=== PATIENT | male | born 1960 | race Caucasian/White ===

== ENCOUNTER 2017-01-05 19:29 | Emergency (ER) | payer OTHER ==
[2017-01-05 20:02] VITALS: TEMP 98.4
--- NOTE | 2017-01-05 20:28 | CPEKG ---
Heart Rate: 70 RR Interval: 857 P-R Interval: 216 QRSD Interval: 86 QT Interval: 376 QTC Interval: 406 P [place]: 37 QRS [place]: -7 T Wave [place]: 133 EKG Severity - ABNORMAL ECG - EKG Impression: SINUS RHYTHM EKG Impression: FIRST DEGREE AV BLOCK EKG Impression: NONSPECIFIC T ABNORMALITIES, LATERAL LEADS Electronically Signed By: Surya Coughlin 05-Jan-2017 23:47:58
--- NOTE | 2017-01-05 20:35 | EDPHY ---
H & P Time Seen by Provider: 01/05/17 20:34 HPI/ROS: Chief complaint. left leg swelling, shortness of breath, syncope HPI. 56-year-old male short of breath today also ankle swelling today after multiple insect bites. No injury. He was camping over the weekend and was bitten by a lot of mosquitos especially on the left lower leg. Denies chest pain. Some shortness of breath with exertion in using his inhaler today. No fever. He apparently had a syncopal episode at the gym this evening. No abdominal pain. No urinary symptoms. ROS Constitutional. no fever/chills, no weakness Eyes. no problems with vision ENT. no sore throat, no nasal drainage Cardiovascular. no chest pain Respiratory. Shortness of breath Abdominal. no abdominal pain, no nausea/vomiting, no diarrhea . no problems urinating MS. Left leg swelling Skin. Multiple insect bites on left leg Lymph. no swollen glands Neuro. Syncope Past Medical/Surgical History: HIV, nephrectomy, enlarged aorta, hypertension, diabetes, asthma, rectal cancer Social History: Single, nonsmoker, no alcohol Smoking Status: Never smoked Physical Exam: General Appearance: Alert well-developed male mild distress vital signs are stable though initial blood pressure 201/120 Eyes: Pupils equal and round no pallor or injection. ENT, Mouth: Mucous membranes are moist. Respiratory: There are no retractions, lungs are clear to auscultation. Cardiovascular: Regular rate and rhythm. Gastrointestinal: Abdomen is soft and nontender, no masses, bowel sounds normal. Neurological: Awake and alert, sensory and motor exams grossly normal. Skin: Warm and dry, no rashes. Musculoskeletal: Neck is supple nontender. Extremities left leg is swollen from knee down with multiple insect bites. No evidence for infection Psychiatric: Patient is oriented X 3, there is no agitation. Constitutional: Initial Vital Signs Temperature (C) 36.9 C 01/05/17 19:53 Heart Rate 78 01/05/17 19:53 Respiratory Rate 20 01/05/17 19:53 Blood Pressure 201/120 H 01/05/17 19:53 O2 Sat (%) 97 01/05/17 19:53 O2 Delivery Mode Room Air Allergies/Adverse Reactions: clindamycin Allergy (Verified 10/18/15 15:26) Rash metformin Allergy (Verified 01/05/17 19:53) Home Medications: Medication Instructions Recorded Aspirin 81 mg PO DAILY 05/06/16 Atenolol 25 mg PO DAILY 10/18/15 Fluconazole 50 mcg EACHNARE DAILY 10/18/15 Jublia 10 tube DAILY 10/18/15 Luadrien 1 tube DAILY 10/18/15 Mvi, Adult No.2 Without Vit K 1 tab PO DAILY 10/18/15 Tivicay 50 mg PO DAILY 10/18/15 Truvada 200MG/300MG (RX) 200 mg PO DAILY 10/18/15 Vitamin D3 5,000 units PO DAILY 10/18/15 Medical Decision Making - Diagnostics EKG Interpretation: EKG interpreted by me shows normal sinus rhythm with first-degree AV block. Left axis deviation. QRS is normal there is no significant ST elevation or depression. No arrhythmia. The rate is 70 Imaging Results: Imaging Impressions Extremity Venous Study 01/05/17 20:04 Impression: No evidence of deep vein thrombosis in the left lower extremity. Results called and discussed with JENNIFER HARDING M.D. on 01/05/2017 at 21:10 Chest X-Ray 01/05/17 20:56 Impression: Chest negative for acute cardiopulmonary abnormality. Ultrasound reveals no evidence of DVT reviewed by me and discussed with Dr. Kenny Chest x-ray shows possible mild CHF but no pneumonia Procedures: IV normal saline, monitor ED Course/Re-evaluation: Re-evaluation 10:15 p.m.. The patient and I discussed EKG findings, imaging study results, lab results. We discussed treatment plan. I recommended and offered admission however he declines and would like to be treated as an outpatient. We discussed importance of follow-up as well as criteria for return. He expresses understanding and agreement Differential Diagnosis: I considered DVT, PE, acute coronary syndrome. I think the leg swelling is secondary to extensive insect bites on his left leg - Data Points Laboratory Results: Laboratory Results 01/05/17 21:00 01/05/17 21:00 01/05/17 01/05/17 01/05/17 21:00 21:00 21:00 WBC RBC Hgb Hct MCV MCH MCHC RDW Plt Count MPV Neut % (Auto) Lymph % (Auto) [place] % (Auto) Eos % (Auto) Baso % (Auto) Nucleat RBC Rel Count Absolute Neuts (auto) Absolute Lymphs (auto) Absolute Monos (auto) Absolute Eos (auto) Absolute Basos (auto) Absolute Nucleated RBC Immature Gran % Immature Gran # D-Dimer 0.30 ug/mLFEU ug/mLFEU (0.00-0.50) Sodium 139 mEq/L mEq/L (134-144) Potassium 4.4 mEq/L mEq/L (3.5-5.2) Chloride 108 mEq/L mEq/L (97-110) Carbon Dioxide 20 mEq/l L mEq/l (22-31) Anion Gap 11 mEq/L mEq/L (8-16) BUN 14 mg/dL mg/dL (7-23) Creatinine 1.0 mg/dL mg/dL (0.7-1.3) Estimated GFR > 60 Glucose 154 mg/dL H mg/dL (70-100) Calcium 9.4 mg/dL mg/dL (8.5-10.4) Troponin I < 0.012 ng/mL ng/mL (0-0.034) NT-Pro-B Natriuret Pep Pending 01/05/17 21:00 WBC 6.43 10^3/uL 10^3/uL (3.80-9.50) RBC 4.93 10^6/uL 10^6/uL (4.40-6.38) Hgb 14.1 g/dL g/dL (13.7-17.5) Hct 41.6 % % (40.0-51.0) MCV 84.4 fL fL (81.5-99.8) MCH 28.6 pg pg (27.9-34.1) MCHC 33.9 g/dL g/dL (32.4-36.7) RDW 13.5 % % (11.5-15.2) Plt Count 132 10^3/uL L 10^3/uL (150-400) MPV 11.3 fL fL (8.7-11.7) Neut % (Auto) 49.8 % % (39.3-74.2) Lymph % (Auto) 37.5 % % (15.0-45.0) [place] % (Auto) 7.8 % % (4.5-13.0) Eos % (Auto) 3.9 % % (0.6-7.6) Baso % (Auto) 0.8 % % (0.3-1.7) Nucleat RBC Rel Count 0.0 % % (0.0-0.2) Absolute Neuts (auto) 3.21 10^3/uL 10^3/uL (1.70-6.50) Absolute Lymphs (auto) 2.41 10^3/uL 10^3/uL (1.00-3.00) Absolute Monos (auto) 0.50 10^3/uL 10^3/uL (0.30-0.80) Absolute Eos (auto) 0.25 10^3/uL 10^3/uL (0.03-0.40) Absolute Basos (auto) 0.05 10^3/uL 10^3/uL (0.02-0.10) Absolute Nucleated RBC 0.00 10^3/uL 10^3/uL (0-0.01) Immature Gran % 0.2 % % (0.0-1.1) Immature Gran # 0.01 10^3/uL 10^3/uL (0.00-0.10) D-Dimer Sodium Potassium Chloride Carbon Dioxide Anion Gap BUN Creatinine Estimated GFR Glucose Calcium Troponin I NT-Pro-B Natriuret Pep Departure - Departure Disposition: Home, Routine, Self-Care Clinical Impression: Syncope Qualifiers: Syncope type: unspecified Qualified Code(s): R55 - Syncope and collapse Condition: Good Instructions: Syncope (ED) Additional Instructions: Easy activity. Regular meals, drink plenty of fluids, and stay hydrated. May use Benadryl by mouth or Benadryl cream for swelling of your leg. Keep leg elevated as much as possible. Return for further passing out episodes, chest discomfort, trouble breathing. Re-evaluation by regular physician in the next 2 -3 days. Referrals: Ana Cook NP [Primary Care Provider] - 2-3 days without fail
[2017-01-05 21:17] LABS: % IMMATURE GRANULYOCYTES 0.2 % (0.0-1.1); ABSOLUTE IMMATURE GRANULOCYTES 0.01 10^3/uL (0.00-0.10); ADD DIFF? NO; ADD MORPH? NO; ADD SCAN? NO; ATYPICAL LYMPHOCYTE FLAG 10 (0-99); FRAGMENT RBC FLAG 0 (0-99); HEMATOCRIT 41.6 % (40.0-51.0); HEMOGLOBIN 14.1 g/dL (13.7-17.5); LEFT SHIFT FLG 0 (0-99); LIPEMIA HEMOLYSIS FLAG 90 (0-99); MEAN CELL HEMOGLOBIN 28.6 pg (27.9-34.1); MEAN CELL HEMOGLOBIN CONCENTR. 33.9 g/dL (32.4-36.7); MEAN CELL VOLUME 84.4 fL (81.5-99.8); MEAN PLATELET VOLUME 11.3 fL (8.7-11.7); PLATELET CLUMPS FLAG 0 (0-99); PLATELET COUNT 132 10^3/uL (150-400); RED BLOOD CELL COUNT 4.93 10^6/uL (4.40-6.38); RED CELL DISTRIBUTION WIDTH 13.5 % (11.5-15.2)
[2017-01-05 21:28] LABS: ANION GAP 11 mEq/L (8-16); CALCIUM 9.4 mg/dL (8.5-10.4); CARBON DIOXIDE 20 mEq/l (22-31); CHLORIDE 108 mEq/L (97-110); GLOMERULAR FILTRATION RATE > 60; GLUCOSE 154 mg/dL (70-100); POTASSIUM 4.4 mEq/L (3.5-5.2); SODIUM 139 mEq/L (134-144)
[2017-01-05 21:39] LABS: TROPONIN I < 0.012 ng/mL (0-0.034)
[2017-01-05 22:13] VITALS: BP 171/98; PULSE 70; RESP 16; O2SAT 95
== END 2017-01-05 22:30 | disposition home or self-care (01) ==
DX: R55 Syncope and collapse (principal); I10 Essential (primary) hypertension; E11.9 Type 2 diabetes mellitus without complications; B20 Human immunodeficiency virus [HIV] disease; J45.909 Unspecified asthma, uncomplicated; Z79.82 Long term (current) use of aspirin; Z85.048 Personal history of other malignant neoplasm of rectum, rectosigmoid junction, and anus

== ENCOUNTER 2017-01-06 12:14 | Inpatient (IN) | payer OTHER ==
--- NOTE | 2017-01-06 13:26 | EDPHY ---
H & P Stated Complaint: continued problems with htn and l shoulder pain/seen for same last night Time Seen by Provider: 01/06/17 12:47 - Personal History Current Tetanus/Diphtheria Vaccine: Yes - Medical/Surgical History Hx Asthma: Yes Hx Chronic Respiratory Disease: No Hx Diabetes: Yes Hx Cardiac Disease: No Hx Renal Disease: Yes Hx Cirrhosis: No Hx Alcoholism: No Hx HIV/AIDS: Yes Hx Splenectomy or Spleen Trauma: No Other PMH: HIV 2003, Nephrectomy 1998, Enlarged Aorta, Hypertension, DM type 2, Asthma, Rectal Cancer - Social History Smoking Status: Never smoked Constitutional: Initial Vital Signs Temperature (C) 36.5 C 01/06/17 12:20 Heart Rate 83 01/06/17 12:20 Respiratory Rate 18 01/06/17 12:20 Blood Pressure 187/107 H 01/06/17 12:20 O2 Sat (%) 96 01/06/17 12:20 O2 Delivery Mode Room Air Allergies/Adverse Reactions: clindamycin Allergy (Verified 01/06/17 12:17) Rash metformin Allergy (Verified 01/06/17 12:17) Home Medications: Medication Instructions Recorded Albuterol [Proventil Inhaler HFA 1 - 2 puffs IH Q4H PRN 01/06/17 (*)] Aspirin [Aspirin 81mg (*)] 81 mg PO DAILY 01/06/17 Carvedilol [Coreg] 12.5 mg PO BIDMEAL 01/06/17 Cholecalciferol Vit D3 [Vitamin D3 5,000 units PO DAILY 01/06/17 (*)] Dolutegravir Sodium [Tivicay] 50 mg PO DAILY 01/06/17 Emtricitabine/Tenofov Alafenam 1 each PO DAILY 01/06/17 [Descovy 200-25 mg Tablet] Fluticasone Nasal [Flonase Nasal 1 sprays NASAL DAILY PRN 01/06/17 [place] (RX)] Losartan Potassium [Cozaar] 100 mg PO HS 01/06/17 Medical Decision Making - Diagnostics Imaging Results: Imaging Impressions Chest X-Ray 01/06/17 13:28 Impression: 1.COPD/ mild airways disease. No pneumonia. 2. No CHF. PICC Line Insertion 01/06/17 15:43 Impression: Successful right upper extremity PICC placement. The catheter may be used immediately. ED Course/Re-evaluation: CHIEF COMPLAINT: High blood pressure. HISTORY OF PRESENT ILLNESS: This patient is a 56 year old male complaining of hypertension and other associated symptoms onset yesterday. Yesterday, he was not feeling well and had a swollen left ankle and burning pain in his quadriceps while going up and down stairs. He attributes his ankle swelling and erythematous areas to multiple excoriated bug bite sites and psoriasis. He noted his blood pressure was quite elevated at 212/114. He had a syncopal episode while using the stationary bike at the gym. He was seen in this emergency department yesterday evening and was recommended admission at that time, but he declined and went home. Today, he went to visit his eye surgeon, and his blood pressure was elevated again at 212/115. He has noted increased difficulty with walking or going up stairs, and notes left shoulder pain during exertional efforts. He does not usually use his inhaler, but used it five times today. He has not missed any of his regular medications, and denies any recent changes in medication regimen. He denies history of prior cardiac catheterization. He denies shortness of breath at night or while lying flat. No fever, vomiting, diarrhea, or other associated symptoms. REVIEW OF SYSTEMS: A 10 point review of systems was performed and is negative with the exception of the elements mentioned in the history of present illness. PHYSICAL EXAM: General Appearance: Alert, well hydrated, appropriate, and non-toxic appearing. Head: Atraumatic without scalp tenderness or obvious injury Eyes: Pupils equal, round, reactive to light and accommodation, EOMI, no trauma , no injection. Ears: Clear bilaterally, no perforation, normal landmarks Nose: Atraumatic, no rhinorrhea, clear. Throat: There is no erythema or exudates, no lesions, normal tonsils, mucus membranes moist. Neck: Supple, 2+ carotid upstroke, non-tender, no lymphadenopathy. Respiratory: No retractions, no distress, no wheezes, and no accessory muscle use. Lungs are clear to auscultation bilaterally. Cardiovascular: Regular rate and rhythm, no murmurs, rubs, or gallops. Bilateral carotid, radial, dorsalis pedis, and posterior tibial pulses intact. Good capillary refill all extremities. Gastrointestinal: Abdomen is soft, non-tender, non-distended, no masses, no rebound, no guarding, no peritoneal signs. Musculoskeletal: Normal active ROM of all extremities, atraumatic. Neurological: Alert, appropriate, and interactive. The patient has normal DTRs and non-focal cranial nerves, motor, sensory, and cerebellar exam. Skin: No rashes, good turgor, no nodules on palpation. PAST MEDICAL HISTORY: HIV 2003, Enlarged Aorta, Hypertension, DM type 2, Asthma , Rectal Cancer PAST SURGICAL HISTORY: Nephrectomy 1998 SOCIAL HISTORY: Single, nonsmoker, no alcohol use. Lives in [place]. DIAGNOSTICS/PROCEDURES/CRITICAL CARE TIME: The 12 lead EKG was interpreted by myself. See hard copy and/or "tracemaster" electronic copy for interpretation. Sinus rhythm, rate 68. First degree AV block , abnormal T waves. DIFFERENTIAL DIAGNOSIS: The differential diagnosis for the patient's syncope included but was not limited to vasovagal syncope, arrhythmia, dehydration, cardiogenic causes, neurogenic causes, and blood loss. MEDICAL DECISION MAKIN56 year old male presents with hypertension, exertional difficulty, and left- sided chest pain onset yesterday. He has history of HIV, type II diabetes, and controlled hypertension. Concern for increased likelihood of cardiac disease due to antiretroviral medication. EKG compared to prior studies from 01/05/17 and 12/03/16. Shows lateral ST changes with differences over all three EKGs reviewed. 13:50 Spoke with Clem Hgaan mechanic recovery. 13:58 Echocardiogram at bedside. 15:30 Clem Hagan mechanic recovery at bedside. 15:40 Spoke with hospitalist service. Dr. Metz accepts admission for continued cardiac evaluation. - Data Points Laboratory Results: Laboratory Results 01/06/17 14:42 01/06/17 14:42 01/06/17 01/06/17 14:42 14:42 WBC 6.40 10^3/uL 10^3/uL (3.80-9.50) RBC 4.98 10^6/uL 10^6/uL (4.40-6.38) Hgb 14.5 g/dL g/dL (13.7-17.5) Hct 42.0 % % (40.0-51.0) MCV 84.3 fL fL (81.5-99.8) MCH 29.1 pg pg (27.9-34.1) MCHC 34.5 g/dL g/dL (32.4-36.7) RDW 13.4 % % (11.5-15.2) Plt Count 131 10^3/uL L 10^3/uL (150-400) MPV 11.5 fL fL (8.7-11.7) Neut % (Auto) 55.1 % % (39.3-74.2) Lymph % (Auto) 32.8 % % (15.0-45.0) [place] % (Auto) 7.3 % % (4.5-13.0) Eos % (Auto) 3.6 % % (0.6-7.6) Baso % (Auto) 0.9 % % (0.3-1.7) Nucleat RBC Rel Count 0.0 % % (0.0-0.2) Absolute Neuts (auto) 3.52 10^3/uL 10^3/uL (1.70-6.50) Absolute Lymphs (auto) 2.10 10^3/uL 10^3/uL (1.00-3.00) Absolute Monos (auto) 0.47 10^3/uL 10^3/uL (0.30-0.80) Absolute Eos (auto) 0.23 10^3/uL 10^3/uL (0.03-0.40) Absolute Basos (auto) 0.06 10^3/uL 10^3/uL (0.02-0.10) Absolute Nucleated RBC 0.00 10^3/uL 10^3/uL (0-0.01) Immature Gran % 0.3 % % (0.0-1.1) Immature Gran # 0.02 10^3/uL 10^3/uL (0.00-0.10) Sodium 140 mEq/L mEq/L (134-144) Potassium 4.2 mEq/L mEq/L (3.5-5.2) Chloride 109 mEq/L mEq/L (97-110) Carbon Dioxide 19 mEq/l L mEq/l (22-31) Anion Gap 12 mEq/L mEq/L (8-16) BUN 15 mg/dL mg/dL (7-23) Creatinine 0.9 mg/dL mg/dL (0.7-1.3) Estimated GFR > 60 Glucose 196 mg/dL H mg/dL (70-100) Calcium 9.0 mg/dL mg/dL (8.5-10.4) Magnesium 1.7 mg/dL mg/dL (1.6-2.3) Troponin I < 0.012 ng/mL ng/mL (0-0.034) NT-Pro-B Natriuret Pep 145 pg/mL H pg/mL (0-125) Medications Given: Discontinued Medications Carvedilol (Coreg) 12.5 mg PO ONCE ONE Stop: 01/06/17 15:52 Last Admin: 01/06/17 17:02 Dose: 12.5 mg Furosemide (Lasix Injection) 40 mg IVP EDNOW ONE Stop: 01/06/17 15:51 Last Admin: 01/06/17 17:03 Dose: 40 mg Departure - Departure Disposition: [facility] Inpatient Acute Condition: Fair Report Scribed for: Stanley Santos Report Scribed by: Delores Ceja Date of Report: 01/06/17 Time of Report: 15:58
--- NOTE | 2017-01-06 13:34 | CPEKG ---
Heart Rate: 68 RR Interval: 882 P-R Interval: 212 QRSD Interval: 88 QT Interval: 380 QTC Interval: 405 P [place]: 36 QRS [place]: -11 T Wave [place]: 138 EKG Severity - ABNORMAL ECG - EKG Impression: SINUS RHYTHM EKG Impression: FIRST DEGREE AV BLOCK EKG Impression: ABNORMAL T, CONSIDER ISCHEMIA, LATERAL LEADS Electronically Signed By: Stanley Santos 06-Jan-2017 21:19:50
[2017-01-06 14:52] LABS: % IMMATURE GRANULYOCYTES 0.3 % (0.0-1.1); ABSOLUTE IMMATURE GRANULOCYTES 0.02 10^3/uL (0.00-0.10); ADD DIFF? NO; ADD MORPH? NO; ADD SCAN? NO; ATYPICAL LYMPHOCYTE FLAG 10 (0-99); FRAGMENT RBC FLAG 0 (0-99); HEMOGLOBIN 14.5 g/dL (13.7-17.5); LEFT SHIFT FLG 0 (0-99); LIPEMIA HEMOLYSIS FLAG 90 (0-99); MEAN CELL HEMOGLOBIN 29.1 pg (27.9-34.1); MEAN CELL HEMOGLOBIN CONCENTR. 34.5 g/dL (32.4-36.7); MEAN CELL VOLUME 84.3 fL (81.5-99.8); MEAN PLATELET VOLUME 11.5 fL (8.7-11.7); PLATELET CLUMPS FLAG 20 (0-99); PLATELET COUNT 131 10^3/uL (150-400); RED BLOOD CELL COUNT 4.98 10^6/uL (4.40-6.38); RED CELL DISTRIBUTION WIDTH 13.4 % (11.5-15.2)
[2017-01-06 15:01] LABS: ANION GAP 12 mEq/L (8-16); CARBON DIOXIDE 19 mEq/l (22-31); CHLORIDE 109 mEq/L (97-110); CREATININE 0.9 mg/dL (0.7-1.3); GLOMERULAR FILTRATION RATE > 60; GLUCOSE 196 mg/dL (70-100); MAGNESIUM 1.7 mg/dL (1.6-2.3); POTASSIUM 4.2 mEq/L (3.5-5.2); SODIUM 140 mEq/L (134-144)
[2017-01-06 15:13] LABS: TROPONIN I < 0.012 ng/mL (0-0.034)
[2017-01-06] MEDS ORDERED: ALTEPLASE 2 MG VIAL IVP PRN (15:43)
[2017-01-06] MEDS ORDERED: FUROSEMIDE 40 MG/4 ML VIAL IVP ONE (15:50)
[2017-01-06] MEDS ORDERED: CARVEDILOL 25 MG TAB PO ONE (15:51)
[2017-01-06] MEDS ORDERED: ONDANSETRON DISINTEGRATING 4 MG TAB PO PRN (16:34)
[2017-01-06] MEDS ORDERED: ACETAMINOPHEN 325 MG TAB PO PRN (16:34)
[2017-01-06] MEDS ORDERED: ONDANSETRON 4 MG/2 ML VIAL IVP PRN (16:34)
[2017-01-06] MEDS: CARVEDILOL 25 MG TAB PO SCH (18:13)
[2017-01-06] MEDS ORDERED: FLUTICASONE NASAL 120 SPRAYS/16 GM MDI EACHNARE PRN (18:53)
[2017-01-06] MEDS ORDERED: ALBUTEROL 60 PUFFS/8 GM MDI IH PRN (18:53)
[2017-01-06 19:00] LABS: COLOR COLORLESS; LEUKOCYTE ESTERASE,URINE NEGATIVE (NEGATIVE); NITRITE,URINE NEGATIVE (NEGATIVE)
--- NOTE | 2017-01-06 19:47 | GHP ---
[f rep st] HISTORY AND PHYSICAL DATE OF ADMISSION: 01/06/2017 CHIEF COMPLAINT: Hypertension and shoulder pain. Primary physician at [facility]. HISTORY OF PRESENT ILLNESS: A pleasant 56-year-old male with a history of hypertension, HIV, and dilated aortic aneurysm, presenting with uncontrolled hypertension. Yesterday, he was not feeling well and had a swollen left ankle, so he came to the emergency room. At that time, his blood pressure was elevated to 212/114. Prior to coming to the ER yesterday, he had a syncopal episode while using a stationary bike. Prior to this, he felt his heart racing. He was clammy and diaphoretic, and then awoke on the ground. He said he had similar symptoms during a nuclear stress test a year ago. Today, he went to see his eye surgeon, and his blood pressure was elevated again to 212/115. He says his left shoulder has been painful during exertional efforts. He does not normally use his inhaler and was using it several times yesterday as well as over the weekend when hiking on a camping trip. He has multiple bug bites on that leg, which are mildly irritating. Next, he denies PND or orthopnea. No recent travel. No headaches. No overt chest pain. He states he walks 10,000 steps a day at work and does not usually get chest pain or shortness of breath. REVIEW OF SYSTEMS: I completed a 10-point review of systems, which was negative except as noted in the HPI. PAST MEDICAL HISTORY: Hypertension, LVH, dilated aortic aneurysm--4 cm on 2015, CKD, hyperlipidemia, HIV--nondetectable levels, myopathy, C difficile, abdominal hernia, myopathy of unknown etiology. PAST SURGICAL HISTORY: Nephrectomy secondary to cyst, with subsequent abdominal hernia surgeries x4. FAMILY HISTORY: He is adopted, but was able to talk to his adoptive family. Renal cell carcinoma, uncle with colon cancer, coronary artery disease in all grandparents, breast cancer in all grandparents, uncle with stroke, and hypertension throughout the family. SOCIAL HISTORY: He is adopted. He lives in [place]. He works at a furniture store. He lives with roommates. Drinks occasional alcohol. No illicits or tobacco next. ALLERGIES: Clindamycin, metformin, statins. PHYSICAL EXAMINATION: VITAL SIGNS: Blood pressure 187/107, heart rate 80s, respirations 16, 96% on room air, temperature 36.5. GENERAL: Overweight male, sitting up in bed, in no acute distress. HEENT: PERRLA. EOMI. Oropharynx clear. CV: Regular rhythm. No murmurs, gallops, or rubs. +1 edema over shins. LUNGS: Clear. No crackles or wheezes. ABDOMEN: Soft, nontender, nondistended. Positive bowel sounds. : No suprapubic tenderness. MUSCULOSKELETAL: 5/5 upper and lower extremity strength. NEUROLOGIC: 2 through 12 intact. PSYCHIATRIC: Alert and oriented x3. LABORATORY DATA: Sodium 140, potassium 4.2, chloride 109, carbon dioxide 19, BUN 15, creatinine 0.9, glucose 196, mag 1.7. Troponin less than 0.012. BNP 145. WBC 6.4, hemoglobin 14, hematocrit 42, platelets 131. UA is pending. Chest x-ray was personally reviewed by me: COPD. No evidence of edema or pneumonia. EKG was personally reviewed by me: Normal sinus rhythm. ST depression in I, aVL, V4, and V5. This is similar to prior. ASSESSMENT AND PLAN: 1. Accelerated hypertension: Echocardiogram performed today showed left ventricular hypertrophy and a normal ejection fraction. Suspect diastolic dysfunction. He was evaluated by Clem Hagan with Cardiology. Increase Coreg to 25 mg b.i.d., along with Lasix. Continue his sartan. May need to add amlodipine in the morning. 2. Syncopal episode: No evidence of arrhythmia here. Troponins and EKG negative. He had a D-dimer yesterday that was negative, and an ultrasound of lower extremities that was negative. May have been dehydrated. He will undergo a Lexiscan test tomorrow. 3. Shoulder pain: Could be musculoskeletal versus ACS equivalent. He had a negative stress test a year ago, but given the family history as well as HIV as risk factors, we will stress again tomorrow. 4. Mildly decompensated diastolic heart failure. Mild edema on exam. Lasix, BB , Losartan. 5. Human immunodeficiency virus, well controlled. Continue home medications. 6. Diet: Cardiac. N.p.o. after midnight. 7. Deep vein thrombosis prophylaxis. Low risk, ambulatory. DISPOSITION: The patient warrants observation given accelerated hypertension and mildly decompensated diastolic heart failure, warranting serial troponins and telemetry. /[id number]/MODL MTDD
[2017-01-06] MEDS: LOSARTAN POTASSIUM 50 MG TAB PO SCH (20:09)
[2017-01-06] MEDS ORDERED: ALBUTEROL 200 PUFFS/18 GM MDI IH PRN (21:12)
--- NOTE | 2017-01-07 04:55 | GCON ---
[f rep st] CONSULTATION CARDIOLOGY CONSULTATION DATE OF CONSULTATION: 01/06/2017 INDICATION FOR CONSULTATION: Hypertension, increased shortness of breath, left shoulder and back pain. HISTORY OF PRESENT ILLNESS: The patient is a 56-year-old male, who is known to our practice. He has significant past history that includes HIV positive, hypertension, LVH, mildly dilated ascending aorta (4 cm by echocardiogram 01/2016 ), occasional premature ventricular contraction, renal insufficiency (previous nephrectomy), hyperlipidemia, in which he is currently not on statin therapy due to ongoing elevated CK despite being off statin therapy. The patient reports up to 1 week ago he had been in his normal state of health, then reporting ongoing dyspnea on exertion, finding it hard to climb 1 flight of stairs. He reports developing occasional left shoulder pain, that comes on spontaneously or occasionally with exertion, lasting up to 15-20 minutes, but has been known to last up to 2-3 hours. He has also noted significant swelling in his legs, reporting left worse than right. He does report last evening, after working out, he did noticing significant elevated blood pressure, reporting systolic up into the 220s. He denies having any palpitations or lightheadedness. With his ongoing symptoms, he did come to the emergency department on January 05 at 8 p.m., in which initial blood pressure was noted to be 201/120. Chest x-ray was obtained at that time, showing no acute cardiopulmonary process. Electrocardiogram showed sinus rhythm with first- degree AV block, with biphasic T-waves in lateral leads. Laboratory studies drawn last evening did not show a significant elevated troponin, BNP was mildly elevated at 151, D-dimer was less than 0.30. He did undergo ultrasound of his left lower extremity, due to unequal swelling, which did not show any deep vein thrombosis. Due to his symptoms, he was offered to stay, but the patient preferred going home. The patient reported no problem throughout the evening, but this morning awoke, had an eye appointment, and his blood pressure was taken again, this time, finding that his blood pressure was elevated up to 212 mmHg. He did call his primary care, in which he was recommended to go directly to the emergency department again. Upon arrival, his blood pressure today was noted to be 187/100. Repeated electrocardiogram done continued to show inverted T-waves in lateral leads, with a 1st degree AV block, but no significant change from the day before. Repeated troponin level today showed to be less than 0.012. He reports no other significant blood pressure changes. He continues to report shortness of breath, but currently is not having shoulder pain. He reports no recent fevers, chills, night sweats. He did go camping, and he has multiple mosquito bites on his lower extremities, but no signs of active infection. He does report he has been compliant with all his medications, cardiac and HIV. He reports he has had no other significant symptoms. Denies having any bleeding issues. Denies any symptoms to suggest TIA or CVA. Reports mild orthopnea, but denies having any PND, near-syncope, or syncopal events. Repeated chest x-ray done today showed mild COPD, no pneumonia, no CHF. PAST MEDICAL HISTORY: Significant past medical history includes: 1. Dilated ascending aorta measuring at 4 cm by echo 01/2016. 2. Hyperlipidemia. 3. HIV. 4. Hypertension. 5. LVH. 6. Myopathy. 7. Type 2 diabetes without complications. 8. Renal insufficiency with history of nephrectomy of right kidney, due to being concerned about possible renal cell carcinoma. PAST SURGICAL HISTORY: Includes: 1. Previous lens replacement in both eyes. 2. Mohs procedure. 3. Nephrectomy of the right kidney. 4. Tonsillectomy. 5. Umbilical repair. FAMILY HISTORY: The patient is adopted, but knows family. mother did have history of angina and congestive heart failure. SOCIAL HISTORY: He has 3 children. He drinks alcohol lightly, and has never smoked. He is a . He works in sales. Denies any illicit drug use. ALLERGIES: The patient with known allergies to clindamycin, metformin, statins. MEDICATIONS: Per his [place] chart 1. Aspirin 81 mg p. o. daily 2. Coreg 12.5 mg half a tablet twice daily 3. Imitrex 50 mg 1 tablet p.o. with fluids as early as possible with the onset of migraine attacks. May repeat after 2 hours of headache returns. Not to exceed 200 mg 24 hours. 4. Losartan 100 mg p.o. daily 5. Odefsey 200 mg/25 mg/25 mg 1 tablet p.o. daily 6. Viagra 50 mg tablet 1 tablet by oral route once daily as needed, approximately 30 minutes to 4 hours before sexual activity 7. Vitamin D3 5000 units 1 tablet daily REVIEW OF SYSTEMS: A 10-point review of systems on this patient all negative except as mentioned above. PHYSICAL EXAMINATION: GENERAL APPEARANCE: Tall, mildly obese, male. He is alert and oriented to person, place, time, and situation. Appears to be under no acute distress. CURRENT VITAL SIGNS: Blood pressure of 175/84, heart rate 76, sinus rhythm on the monitor. Saturation 96% on room air. Temperature of 36.3 degrees Celsius. HEENT: Head is normocephalic. Lips and tongue are pink and moist with no signs of cyanosis. Conjunctivae pink. NECK: Trachea is midline, +2 carotid pulses bilateral. No auscultated bruits. No jugular vein distention. RESPIRATORY: Lungs are clear to auscultation. No rhonchi, rales or wheezes. No accessory muscle use. No intercostal muscle retraction noted. CARDIAC: Regular rate, regular rhythm. S1, S2. No S3, gallops, rubs, or murmurs noted. ABDOMEN: Soft, nontender. Bowel sounds x4 quadrants. No organomegaly. No palpable masses. SKIN: [place], warm, dry. No cyanosis. No clubbing. +2 to 3 peripheral edema left lower extremity, +1 to 2 right lower extremity. VASCULAR: +2 carotids bilateral, +2 radials bilateral, +1 posterior tibial pulses bilateral. LABORATORY STUDIES: Drawn today show WBC of 6.40, hemoglobin 14.5, hematocrit of 42, platelet count 131, sodium 140, potassium 4.2, chloride 109, CO2 19, BUN 15, creatinine 0.9, glucose 196, magnesium 1.7, troponin less than 0.012, proBNP 145. Currently pending UA. IMAGING: Studies: Electrocardiogram as mentioned above. Chest x-ray as mentioned above. Preliminary echocardiogram results showing hyperdynamic LV with EF of 70%. LVH , no wall motion abnormalities. Previous studies: Most recent MPI study was done on January 24, 2016, showing no reversible deficits suggesting of ischemia. No fixed deficits suggesting of infarction. 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 ASSESSMENT AND PLAN: 1. Hypertension: The patient reporting that he has been well controlled on home blood pressure medications until the last week, noted last evening to have systolic blood pressure of 210, today 185/100. He reports he has been compliant with his carvedilol and losartan. He does have diastolic dysfunction and left ventricular hypertrophy on his echocardiogram. No significant elevated BNP. At this time, I would like to increase his carvedilol dose up to 25 mg p.o. twice daily, will give him a 12.5 mg tablet now. I do also think some diuresis will help him, will give him a 1 time order of Lasix 40 mg IV. We will continue him on home dose of losartan, if necessary, consideration of starting him on amlodipine. The patient is known to have past history of nephrectomy on the right, BUN creatinine are within normal limits today.. Would like him to have a UA done to assure no urinary tract infection as potential cause of his symptoms. 2. Shortness of breath: The patient reports ongoing dyspnea on exertion. Preliminary echocardiogram showing left ventricular hypertrophy with no wall motion abnormalities, normal ejection fraction. Diastolic dysfunction potentially could be playing a larger role with this, again will attempt to get better blood pressure control, and diuresis as above. The patient noted to have negative D-dimer yesterday evening, and no signs of thrombus in his lower extremities. 3. Left back/shoulder pain: The patient reporting ongoing left back pain with shortness of breath, noted to have abnormal electrocardiogram. Has been on HIV medications which are notorious to be associated with CAD. The patient also with cardiac risk factors of hypertension, hyperlipidemia, sex, and family history of heart disease. His last nuclear MPI was 1 year ago, which showed no signs of ischemia or infarction. He has had 2 negative troponins. I do feel that it would be valid with his ongoing symptoms back/shoulder and shortness of breath that he be further risk analyzed for ischemia. We will plan for him to have a [place]-MPI study done tomorrow. 4. Peripheral edema: The patient noted to have increased peripheral edema in his lower extremities, again will attempt to place him on diuretic therapy, will monitor his renal function closely due to history of nephrectomy. 5. Renal insufficiency: The patient with past history of nephrectomy, will monitor renal function throughout the admission. 6. Ascending aortic dilation: The patient known to have mildly dilated ascending aorta at 4 cm based off previous echocardiogram, pending preliminary echo report showing no significant dilation. Again, blood pressure management, negative D-dimer on admission. If continuation of shoulder pain and MPI study negative, consider CTA of chest. 7. Human immunodeficiency virus positive: The patient will be followed by Hospitalist Services. I will let Internal Medicine decide on resuming his home HIV medications. 8. Hyperlipidemia: The patient has known history of hyperlipidemia. He has been noted to be statin intolerant in the past, with elevated liver enzymes and CK. I have encouraged healthy diet. May consider as an outpatient to place the patient on a PCSK9 inhibitor. Thank you for this consultation. We will be glad to follow along with you. /[id number]/MODL MTDD
[2017-01-07 06:36] LABS: ANION GAP 11 mEq/L (8-16); CALCIUM 8.8 mg/dL (8.5-10.4); CARBON DIOXIDE 24 mEq/l (22-31); CHLORIDE 108 mEq/L (97-110); GLOMERULAR FILTRATION RATE > 60; GLUCOSE 126 mg/dL (70-100); POTASSIUM 4.3 mEq/L (3.5-5.2); SODIUM 143 mEq/L (134-144)
[2017-01-07 06:48] LABS: TROPONIN I 0.054 ng/mL (0-0.034)
[2017-01-07] MEDS: ASPIRIN 81 MG CHEWABLE TAB PO SCH (08:49)
[2017-01-07] MEDS: CARVEDILOL 25 MG TAB PO SCH ×4 (08:50→17:22)
[2017-01-07] MEDS: CHOLECALCIFEROL VIT D3 1,000 UNITS TAB PO SCH (08:53)
[2017-01-07] MEDS ORDERED: Dolutegravir Sodium [Tivicay] 50 MG PO SCH (09:00)
[2017-01-07] MEDS ORDERED: Emtricitabine/Tenofov Alafenam [Descovy 200-25 Mg Tablet] 1 EACH) PO SCH (09:00)
--- NOTE | 2017-01-07 09:11 | CPEKG ---
Heart Rate: 68 RR Interval: 882 P-R Interval: 216 QRSD Interval: 84 QT Interval: 388 QTC Interval: 413 P [place]: 44 QRS [place]: 3 T Wave [place]: 141 EKG Severity - ABNORMAL ECG - EKG Impression: SINUS RHYTHM EKG Impression: FIRST DEGREE AV BLOCK EKG Impression: ABNORMAL T, CONSIDER ISCHEMIA, LATERAL LEADS Electronically Signed By: Carlos Castro 07-Jan-2017 11:30:11
[2017-01-07] MEDS ORDERED: DIAZEPAM 5 MG TAB PO ONE (09:27)
[2017-01-07] MEDS ORDERED: diphenhydrAMINE 25 MG CAP PO ONE ×2 (09:27→11:21)
[2017-01-07] MEDS ORDERED: TEMAZEPAM 15 MG CAP PO PRN (09:27)
[2017-01-07] MEDS ORDERED: ASPIRIN EC 325 MG TAB PO ONE ×2 (09:27→11:21)
[2017-01-07] MEDS ORDERED: NITROGLYCERIN 0.4 MG BTL SL PRN (09:27)
[2017-01-07] MEDS ORDERED: NS 1,000 ML IV SCH (09:30)
[2017-01-07] MEDS: Dolutegravir Sodium [Tivicay] 50 MG PO SCH (10:16)
[2017-01-07] MEDS: Emtricitabine/Tenofov Alafenam [Descovy 200-25 Mg Tablet] 1 EACH) PO SCH (10:16)
[2017-01-07 10:20] LABS: INR 1.06 (0.83-1.16); PROTIME(PATIENT) 13.7 SEC (12.0-15.0)
[2017-01-07 10:22] LABS: CHOLESTEROL 170 mg/dL (140-220); HIGH DENSITY LIPOPROTEIN 21 mg/dL (40-65); LDL/HDL RATIO 4.76 RATIO (1.00-3.64); LOW DENSITY LIPOPROTEIN 100 mg/dL (80-100); MAGNESIUM 1.8 mg/dL (1.6-2.3); NON-HIGH DENSITY LIPOPROTEIN 149 mg/dL (90-129); TRIGLYCERIDE 248 mg/dL (40-150); VERY LOW DENSITY LIPOPROTEINS 49 mg/dL (8-25)
[2017-01-07] MEDS ORDERED: MAGNESIUM SULF 1 GM/DEXTROSE 100 ML IV ONE (10:48)
[2017-01-07] MEDS ORDERED: fentaNYL 100 MCG/2 ML INJ ONE (10:58)
[2017-01-07] MEDS ORDERED: LIDOCAINE 1% 300 MG/30 ML SDV ONE (10:58)
[2017-01-07] MEDS ORDERED: MIDAZOLAM 2 MG/2 ML VIAL ONE (10:59)
[2017-01-07] MEDS ORDERED: IOPAMIDOL (ISOVUE-370) 150 ML BTL IV ONE (10:59)
--- NOTE | 2017-01-07 11:08 | PDCARPN ---
Cardiology Progress Note Chief Complaint: Patient reports continuation of shortness of breath. But improved from yesterday. Assessment/Plan: Assessment: 56-year-old male with known history of HIV, hypertension, LVH, mildly dilated ascending aorta occasional premature ventricular contraction, renal insignificant, previous nephrectomy hyperlipidemia who has been known to be statin intolerant. Admitted to the hospital 01/06/2017 for complain ongoing shortness of for the last week, occasional left shoulder and neck pain, hypertension with systolic blood pressure up to 212 and ongoing peripheral edema. Negative troponin D-dimer in the emergency department. Ultrasound of lower extremity showing no thrombus. Preliminary echocardiogram done on 2016 showing hyperdynamic LV with EF 70%, LVH, motion abnormalities. Last evening, has had is in carvedilol increased, continue home dose of losartan, and given 1 dose of IV Lasix. Today, patient reports mild improvement in shortness of breath, mild improvement in peripheral edema. Denies of any chest pressure or pain. Patient noted last evening 220 in the morning of having increased premature ventricular contractions, with 2-3 runs of nonsustained ventricular tachycardia, longest 8 beats in a row. Per nursing staff, patient was asymptomatic. Was sleeping at time of event. Laboratory studies done today show potassium at 4.3, magnesium at 1.8, troponin mildly elevated at 0.054. Fasting lipid panel showed triglycerides at 2:48 a.m., total cholesterol 170, LDL 100, HDL 21. Plan: 1. Left back/shoulder pain/shortness of breath/elevated troponin: Concerning new recent studies showing mildly elevated troponin, and nonsustained ventricular tachycardia as possible cause cardiac ischemia. Had been scheduled for MPI study. After discussing with Dr. Waqas crowley due to patient's report of sudden increased shortness of breath over the last week, occasional left shoulder with back pain, multiple cardiac risk factors, and episodes of nonsustained VT noted on telemetry, it would be more appropriate for him to have a coronary angiogram to evaluate for cardiac ischemia in MPI study. Risks and benefits of this procedure were explained to the patient, he verbalizes understanding. We will plan him to be transferred over to the [facility], and undergo cardiac catheterization later this morning. He will continue aspirin therapy, carvedilol. 2. Nonsustained VT: Patient noted to have episodes of nonsustained VT last evening, potassium was 4.3, magnesium 1.8. Chest x-ray done this morning showed PICC line in adequate position, not in RV. Will evaluate for cardiac ischemia as mentioned above, have ordered for him to get 1 g of magnesium IV before catheterization. 3. Hypertension: Better controlled with medication changes, but diastolic blood pressure remains 90s to 100, systolic 140s. Pending catheterization results, consideration of continuing diuretic therapy, if necessary starting on amlodipine. Continue on home dose of losartan and new dosage carvedilol 4. LVH: Patient with noted LVH and diastolic dysfunction, could be contributing to his ongoing shortness of breath, attempting better blood pressure control as mentioned above, continuation of diuretic therapy. 5. Peripheral edema: Improvement today after dose of IV Lasix. Due to undergoing cardiac catheterization today, history of renal insufficiency due to previous nephrectomy, will hold off on diuretic therapy the time. 6. History of renal insufficiency: Previous nephrectomy, creatinine within normal limits, continue to monitor 7. Hyperlipidemia: Patient has been noted to be statin intolerant the past elevated liver enzymes and CPK. Pending results, consideration of having patient be placed on a PCSK9 inhibitor as an outpatient. Further recommendations will status post cardiac catheterization. 01/07/17 11:05 Subjective: Continuation of shortness of breath, denies chest pressure. Reports no further episodes of left shoulder overnight. Reports asymptomatic during episode of nonsustained VT. Denies of palpitations lightheadedness, near-syncope. Reviewed/Discussed With: hospitalist (Dr Avitia), other (Dr Alan) Objective: Vital Signs (8 Hrs) Temp Pulse Resp BP Pulse Ox 01/07/17 07:27 36.3 C 66 18 144/102 H 93 01/07/17 04:00 36.6 C 61 19 149/91 H 98 Intake/Output (24 Hrs) 01/06/17 01/07/17 01/08/17 05:59 05:59 05:59 Intake Total 950 Output Total 2525 Balance -1575 Intake: Oral (ml) 950 Output: Urine (ml) 2525 Urinal 2525 Other: Weight 131.9 kg Intake Quantity Yes Sufficient Number of Voids Toilet 1 Result Diagrams: 01/06/17 14:42 01/07/17 06:10 Cardiac Labs: Cardiac Lab Results (72 Hrs) 01/07/17 01/06/17 06:10 21:19 Troponin I 0.054 H < 0.012 - Physical Exam Constitutional: no apparent distress, obese Ears, Nose, Mouth, Throat: moist mucous membranes Cardiovascular: regular rate and rhythm, no rubs, no gallops, pulses symmetric bilat, No jugular vein distention Peripheral Pulses: 1+: dorsalis-pedis (R), dorsalis-pedis (L), 2+: carotid (R), carotid (L) Respiratory: clear to auscultate bilat, no crackles, no wheezes, No reduced air movement Gastrointestinal: normoactive bowel sounds Skin: warm, No no edema (+1 peripheral edema bilateral lower extremities, left greater than right) Neurologic: AAOx3 Psychiatric: cooperative, interactive, following commands ICD10 Worksheet Patient Problems: Problems Problem Status Onset Diastolic CHF Acute
[2017-01-07] MEDS ORDERED: FAMOTIDINE 20 MG TAB ONE (11:21)
[2017-01-07] MEDS ORDERED: DIAZEPAM 5 MG TAB ONE (11:22)
[2017-01-07] MEDS ORDERED: HEPARIN 10,000 UNIT/10 ML MDV ONE (12:21)
[2017-01-07] MEDS ORDERED: VERAPAMIL 5 MG/2 ML VIAL ONE (12:21)
[2017-01-07] MEDS ORDERED: ATROPINE SULFATE 1 MG/10 ML SYR IVP PRN (12:54)
[2017-01-07] MEDS ORDERED: HYDROCODONE/APAP 5/325 TAB PO PRN (12:54)
--- NOTE | 2017-01-07 13:02 | PDDXCAT ---
Diagnostic Cath Note - . Date: 01/07/17 Delivery Crew Member: Waqas Indication: other (Chest pain, risk factors for CAD, mildly elevated troponin, and non-sustained VT.) - Procedure Access: right wrist Procedure: left heart catheterization, coronary angiography, left ventriculogram - Materials Left Heart Cath size: 5F Left Heart Cath materials: other (Sightseer and Pigtail) - Findings-Left Heart Catheterization LM: Normal. LAD: Mild irregularities. LCX: Mild irregularities. RCA: Mild irregularities. Ramus: Mild irregularities. EDP: 24 mmHg LVEF: 60% Wall motion: Normal Complications: None Estimated blood loss: <50ml Closure method: TR Band Assessment: 1) Normal LV systolic function. 2) Mild coronary atherosclerosis.
--- NOTE | 2017-01-07 13:51 | ECHO ---
[id number] + + [address] : : [place] [address] : : [phone] + Adult Echocardiographic Report + -+ :Name: TATI MERCADO Sofíaudnohemi Date: 01/06/2017 02:17 PM : : Hospital Admission Number: [id number] : :: 1960 Gender: Male Height: 78 in : :Age: 56 yrs Race: WH Weight: 286 lb : :Reason For Study: Eval LV Fx : : BSA: 2.6 meters 2: :History: SOB : + -+ MMode/2D Measurements \T\ Calculations IVSd: 1.0 cm LVIDd: 5.2 cm FS: 41.9 % Ao root diam: 3.9 cm LVPWd: 1.3 cm LVIDs: 3.0 cm EDV(Teich): 128.4 ml ACS: 3.0 cm ESV(Teich): 35.3 ml EF(Teich): 72.5 % Normal Measurement Values: + + :LVIDd (3.5-5.7cm) IVSd (0.6-1.1cm) LVPWd (0.6-1.1cm) Aortic Root (2.0-3.7cm)Left Atrium (1.5-4.0cm): :LV Vol(d) (76-115ml) LV Vol(s) (29-48ml) Ejec Fraction (50-65%)PV Alexis (0.6- 1.2m/s) TV Alexis (0.4-1.0m/s) : :MV E Alexis (0.8-1.0m/s)MV A Alexis (0.3-1.0m/s)LVOT Alexis (0.7-1.2m/s) Asc Ao Alexis ( 0.9-1.8m/s) : + + Doppler Measurements \T\ Calculations MV E max alexis: Ao V2 max: LV V1 max: PA V2 max: 61.7 cm/sec 133.0 cm/sec 90.8 cm/sec 99.1 cm/sec MV A max alexis: Ao max P.1 mmHg LV V1 max PG: PA max P.0 cm/sec 3.3 mmHg 3.9 mmHg MV E/A: 0.77 Left Ventricle The left ventricle is normal in size. There is normal left ventricular wall thickness. The left ventricular ejection fraction is normal. There is Doppler evidence for diastolic dysfunction. Ejection Fraction = 73%. The left ventricular wall motion is normal. Right Ventricle The right ventricle is normal in size and function. Atria The left atrial size is normal. Right atrial size is normal. Mitral Valve The mitral valve is normal in structure and function. There is no evidence of mitral valve prolapse. There is no mitral valve stenosis. There is no mitral regurgitation noted. Tricuspid Valve The tricuspid valve is normal in structure and function. No tricuspid regurgitation. Aortic Valve The aortic valve is normal in structure and function. There is no aortic stenosis. There is no aortic insufficiency. Pulmonic Valve The pulmonic valve is normal in structure and function. There is no pulmonic valvular regurgitation. Great Vessels The aortic root is normal size. Pericardium/Pleural There is no pericardial effusion. Conclusion A complete two-dimensional transthoracic echocardiogram was performed (2D, M-mode, Doppler and color flow Doppler). The study was technically difficult. The left ventricular ejection fraction is normal. There is Doppler evidence for diastolic dysfunction. Ejection Fraction = 73%. The left ventricular wall motion is normal. The right ventricle is normal in size and function. The mitral valve is normal in structure and function. The tricuspid valve is normal in structure and function. The aortic valve is normal in structure and function. There is no pericardial effusion. Final Reading Physician: Ada Sullivan signed on 01/07/2017 01:50 PM Ordering Physician: Stanley Santos Performed By: Zuhair Quevedo, ORTIZCS
[2017-01-07] MEDS ORDERED: MAGNESIUM SULF 1 GM/DEXTROSE 100 ML BAG IV ONE (16:03)
--- NOTE | 2017-01-07 18:02 | HOSPPROG ---
Hospitalist Progress Note Assessment/Plan: assessment: 56-year-old male presents with acute diastolic congestive heart failure exacerbation in the setting of uncontrolled hypertension, complicated by nonsustained ventricular tachycardia and known coronary artery disease Plan: 1. acute diastolic congestive heart failure exacerbation. Evidenced by hypovolemia on exam, most likely diastolic component, received Lasix overnight and has been net -1.5 L over the past 24 hours - Lasix dosing held this morning given cardiac catheterization, received 1 dose of Lasix thereafter -consider re-dosing Lasix tomorrow, based on physical exam and weight -most likely contributing to his symptoms of shortness of breath over the past couple weeks 2. hypertension. Chronic, with acute worsening most likely resulting in peripheral edema and diastolic CHF - discussed with Clem Hagan from Cardiology, he has recommended increasing the carvedilol to 25 mg twice daily continuing losartan 100 mg daily , monitoring effect on blood pressure and monitoring symptomatic improvement of shortness of breath 3. nonsustained ventricular tachycardia. Present on telemetry, personally interpreted, in the setting of above, concern for obstructive coronary disease led to cardiac catheterization today -no evidence of significant stenosis on cardiac catheterization - most likely triggered by PICC line -PICC line has been retracted, chest x-ray confirming placement -will most likely remove PICC line tomorrow if no further need -continue monitor on telemetry overnight after adjustment 4. coronary artery disease. Chronic, continue home medications 5. HIV. Chronic, discussed with Dr. Stanley Mayo, no further adjustments in medications recommended Diet. Cardiac Prophylaxis. High risk patient, Lovenox 40 Code. Full Disposition. upgraded to inpatient admission status given anticipated length stay greater than 2 midnights for reasonable medical necessity including acute diastolic congestive heart failure complicated by acute nonsustained ventricular tachycardia requiring cardiac catheterization, PICC line adjustment , diuretic management. Subjective: Reports shortness of breath somewhat improving Objective: Vital Signs Temp Pulse Resp BP Pulse Ox 36.5 C 75 12 130/85 H 94 01/07/17 17:20 01/07/17 17:22 01/07/17 17:20 01/07/17 17:22 01/07/17 17:20 Laboratory Results 01/07/17 06:10 01/06/17 01/07/17 01/08/17 05:59 05:59 05:59 Intake Total 950 375 Output Total 2525 Balance -1575 375 PT 13.7 SEC (12.0-15.0) 01/07/17 09:50 INR 1.06 (0.83-1.16) 01/07/17 09:50 - Physical Exam Constitutional: no apparent distress, not in pain, obese, No uncomfortable Cardiovascular: regular rate and rhythym, no murmur, rub, or gallop, JVD, edema ( 1+ bilateral lower extremities), No tachycardia Respiratory: inspiratory crackles, No reduced air movement, No expiratory wheeze , No bronchial breath sounds Gastrointestinal: normoactive bowel sounds, soft, non-tender abdomen, no palpable masses Psychiatric: interacting appropriately, not anxious, not encephalopathic, thought process linear ICD10 Worksheet Patient Problems: Problems Problem Status Onset Diastolic CHF Acute
[2017-01-07] MEDS: LOSARTAN POTASSIUM 50 MG TAB PO SCH (21:06)
[2017-01-08 06:01] LABS: ALBUMIN 3.8 g/dL (3.5-5.0); ANION GAP 11 mEq/L (8-16); CARBON DIOXIDE 23 mEq/l (22-31); CHLORIDE 108 mEq/L (97-110); GLOMERULAR FILTRATION RATE > 60; GLUCOSE 113 mg/dL (70-100); POTASSIUM 4.4 mEq/L (3.5-5.2); SODIUM 142 mEq/L (134-144)
[2017-01-08 07:30] VITALS: PULSE 68; O2SAT 95
[2017-01-08] MEDS: Emtricitabine/Tenofov Alafenam [Descovy 200-25 Mg Tablet] 1 EACH) PO SCH (08:12)
[2017-01-08] MEDS: Dolutegravir Sodium [Tivicay] 50 MG PO SCH (08:12)
[2017-01-08] MEDS: CARVEDILOL 25 MG TAB PO SCH (08:13)
[2017-01-08] MEDS: CHOLECALCIFEROL VIT D3 1,000 UNITS TAB PO SCH (08:13)
[2017-01-08] MEDS: ASPIRIN 81 MG CHEWABLE TAB PO SCH (08:13)
[2017-01-08 10:58] VITALS: BP 140/83; RESP 13; TEMP 98
[2017-01-08] MEDS ORDERED: FUROSEMIDE 40 MG TAB PO SCH (11:15)
--- NOTE | 2017-01-08 12:27 | PDDCSUM ---
Discharge Summary Discharge Summary: DISCHARGE SUMMARY FOLLOW-UP ITEMS: Renal ultrasound DATE OF ADMISSION: 01/06/2017 DATE OF DISCHARGE: 01/08/2017 DISCHARGE DIAGNOSES: 1. Acute diastolic congestive heart failure exacerbation 2. Acute on chronic hypertension 3. Nonsustained ventricular tachycardia 4. Chronic coronary artery disease 5. Chronic HIV CONSULTATIONS: Cardiology PROCEDURES / IMAGING: Cardiac catheterization demonstrating no obstructive coronary disease, elevated end-diastolic pressure CHIEF COMPLAINT: Shortness of breath SUBJECTIVE: Patient is feeling well at time of discharge, he reports that his shortness of breath is somewhat improving but does remain present with exertion PHYSICAL EXAM ON DISCHARGE: Systolic blood pressure is 140, heart rate 70, afebrile overnight, satting well on room air, net-1.1 L overnight, faint inspiratory crackles bilateral bases which do not clear with cough, unable to appreciate jugular venous distention, trace bilateral lower extremity edema, heart rhythm is normal sinus LABS ON DISCHARGE: Creatinine 1, BUN 17, potassium 4.4, LDL 100 HOSPITAL COURSE BY PROBLEM: 1. Acute diastolic congestive heart failure exacerbation. Evidenced by hypervolemia on exam with significantly elevated end-diastolic filling pressure, , symptomatically improving with IV Lasix, will initiate oral Lasix monitor renal function closely as an outpatient, given his solitary kidney. The patient 's CHF also most likely improve with better management of his systolic blood pressure. Counseled the patient regarding the importance of monitoring daily weights as well as outpatient follow-up at [facility]. 2. Acute worsening of chronic hypertension. This has been resulting in a combination of peripheral edema as well as diastolic CHF, contributing to the patient's presenting symptoms. His systolic blood pressure was nearly 200 at the time of presentation. His carvedilol was increased to 25 mg twice daily and his losartan was continued 100 mg daily. His blood pressure management improved and his systolic blood pressures ranging between 140 and 160 at time of discharge. He may have a 3rd agent added or he may have his diuretic increased as an outpatient, and he is being initiated on 40 mg once daily. 3. Nonsustained ventricular tachycardia. Present on telemetry, most likely secondary to PICC line catheter stimulation, noted on cardiac catheterization, the PICC line was repositioned and he did not experience any further events. 4. Chronic coronary artery disease. Patient was continued on his home medications. 5. Chronic HIV. Given patient's increased risk of obstructive coronary disease in the setting of HIV and treatment, the patient did undergo cardiac catheterization to rule out obstructive coronary disease. There was no evidence of acute obstructive coronary disease on his cardiac catheterization. Was continued on all of his home HIV medications without interruption. DISCHARGE MEDICATIONS: Please see official discharge medication reconciliation sheet in chart , initiation of Lasix 40 mg once daily, increase of carvedilol to 25 mg twice daily. DISCHARGE INSTRUCTIONS: Please follow up with [facility] this week. TIME SPENT: Greater than 30 minutes were spent on direct patient care, as well as discharge planning and preparation.
--- NOTE | 2017-01-08 13:35 | PDCARPN ---
Cardiology Progress Note Chief Complaint: Patient reports mild improvement in peripheral edema, is not having any further episodes of shortness of breath. Assessment/Plan: Assessment: 56-year-old male with known history of HIV, hypertension, LVH, mildly dilated ascending aorta occasional premature ventricular contraction, renal insignificant, previous nephrectomy hyperlipidemia who has been known to be statin intolerant. Admitted to the hospital 01/06/2017 for complain ongoing shortness of for the last week, occasional left shoulder and neck pain, hypertension with systolic blood pressure up to 212 and ongoing peripheral edema. Negative troponin D-dimer in the emergency department. Ultrasound of lower extremity showing no thrombus. Preliminary echocardiogram done on 2016 showing hyperdynamic LV with EF 70%, LVH, motion abnormalities. Last evening, has had is in carvedilol increased, continue home dose of losartan, and given 1 dose of IV Lasix. Patient underwent cardiac catheterization by Dr. Alan yesterday, showing mild luminal irregularities and most cardiac branches, but no flow limiting disease. Ejection fraction was estimated at 60% with no wall motion abnormalities, EDP was elevated at 24 mm of mercury. During catheterization, it was noted the PICC line appear to be low in the right atrium when patient was supine, it was pulled back 2 cm. Today, patient reports no episodes of chest pain or pressure. He has had no bleeding issues at his right wrist, catheter insertion site, with no signs of infection. Electrolyte and renal functions within normal limits. BP continues to be inadequately controlled. Average systolic blood pressure of 140s, diastolic 80s to 90s. Patient reports no shortness of breath, as and improvement in lower extremity swelling. Continuous cardiac monitoring overnight showed no further runs of nonsustained VT, no malignant arrhythmias noted. No significant pauses. Plan: 1. CAD: Patient noted to have non flow limiting CAD based off cardiac catheterization. Continue on aspirin therapy. Continue modifying risk factors. 2. Nonsustained VT: 4-5 beat runs noted on and a.m. of January 08, patient was asymptomatic. No further runs noted since cardiac catheterization. Cardiac catheterization showed no flow limiting disease, normal electrolyte and renal functions, magnesium within normal limits. Was noted when patient was lying supine and cardiac catheterization lab, PICC line was deep in right atrium, which potentially it could crossed into RV causing arrhythmias. No further arrhythmias noted after pulling PICC line back. Continue on carvedilol 3. Hypertension: Better controlled, but still not adequate, continue on higher dose of carvedilol at 25 mg p. o. twice daily home dose of losartan. Will add 40 mg of Lasix to his daily regime, repeat basic metabolic panel in 1 weeks time. Due to patient being on 3 medications for blood pressure control, and history of renal insufficiency, would like him to undergo renal artery Doppler studies for evaluation possible stenosis. Unfortunately patient has to being NPO for 8 hours, we will plan for him to have this done as an outpatient in the next week. 4. Diastolic dysfunction/LVH: Cardiac catheterization showed LV EDP at 24 mm Hg. Better BP control as above, and diuretic therapy. 5. Peripheral edema: Continue on oral Lasix as an outpatient. 6. History of renal insufficiency: BUN creatinine within normal limits, starting on oral diuretic therapy, repeated basic metabolic panel next Wednesday 7. Hyperlipidemia: Patient has been noted to be statin intolerant the past elevated liver enzymes and CPK. Patient LDL 100, with high total cholesterol and triglycerides, with new diagnosis of non flow limiting CAD, I do think it would be valid for us to try to get his LDL lower than 70. Will plan to see him in the office, at that time, we will attempt to get him placed on a PCSK9 inhibitor. Usually takes at least 1-2 months preauthorization by his insurance company. Patient is planning to be discharged home today, have discussed med changes with him, gone over post cardiac catheterization activity restrictions, and have set up a follow-up appointment with me on January 18 at our [place] office. Patient told that if he has any problems or concerns post discharge he is to notify our office immediately or return to the hospital. 01/08/17 13:35 Subjective: Patient denies of any chest pressure, pain, orthopnea, lightheadedness, near- syncope, or syncopal events. Continues report mild peripheral edema, shortness of breath has improved. Reviewed/Discussed With: hospitalist (Dr Avitia), other (Dr Alan) Objective: Vital Signs (8 Hrs) Temp Pulse Resp BP Pulse Ox 01/08/17 10:57 36.7 C 68 13 140/83 H 95 01/08/17 07:29 68 15 160/98 H 95 Intake/Output (24 Hrs) 01/07/17 01/08/17 01/09/17 05:59 05:59 05:59 Intake Total 1000 Output Total 2500 Balance -1500 Intake: Oral (ml) 1000 Output: Urine (ml) 2500 Urinal 2500 Other: Weight 131.3 kg Result Diagrams: 01/06/17 14:42 01/08/17 05:40 - Physical Exam Constitutional: no apparent distress, obese Ears, Nose, Mouth, Throat: moist mucous membranes Cardiovascular: regular rate and rhythm, no murmurs, no rubs, no gallops, pulses symmetric bilat, No jugular vein distention, No carotid bruit Peripheral Pulses: 1+: dorsalis-pedis (R), dorsalis-pedis (L), 2+: carotid (R), carotid (L) Gastrointestinal: normoactive bowel sounds, no masses Skin: no rashes, warm, No no edema (Trace to +1 peripheral edema bilateral lower extremities) Neurologic: AAOx3 Psychiatric: cooperative, interactive, following commands ICD10 Worksheet Patient Problems: Problems Problem Status Onset Diastolic CHF Acute
== END 2017-01-08 14:05 | disposition home or self-care (01) | DRG 287 ==
LOC: F2W 17:20 → OBSVTOIN 01-07 17:57
PROVIDERS: ADMIT Internal Medicine; ATTEND Internal Medicine
PROC: 02HV33Z Insertion of Infusion Device into Superior Vena Cava, Percutaneous Approach (ICD-10-PCS; 2017-01-06)
PROC: B2111ZZ Fluoroscopy of Multiple Coronary Arteries using Low Osmolar Contrast (ICD-10-PCS; principal; 2017-01-07)
PROC: B2151ZZ Fluoroscopy of Left Heart using Low Osmolar Contrast (ICD-10-PCS; principal; 2017-01-07)
PROC: 4A023N7 Measurement of Cardiac Sampling and Pressure, Left Heart, Percutaneous Approach (ICD-10-PCS; principal; 2017-01-07)
DX: I11.0 Hypertensive heart disease with heart failure (principal); I50.31 Acute diastolic (congestive) heart failure; I47.2 Ventricular tachycardia; I25.10 Atherosclerotic heart disease of native coronary artery without angina pectoris; Z21 Asymptomatic human immunodeficiency virus [HIV] infection status; E11.9 Type 2 diabetes mellitus without complications; Z85.09 Personal history of malignant neoplasm of other digestive organs; J45.909 Unspecified asthma, uncomplicated; M25.512 Pain in left shoulder; Z90.5 Acquired absence of kidney; E78.5 Hyperlipidemia, unspecified; I77.819 Aortic ectasia, unspecified site
CPT/HCPCS: C1751; C1769; G0378; J1644; J1940; J2250; J3010; J3475; Q9967

== ENCOUNTER → 2017-01-15 | Outpatient (CLI) | payer OTHER | LOC: FIMAGING 07:24 | PROVIDERS: ATTEND Nurse Practitioner Family | DX: I10 Essential (primary) hypertension (principal); Z90.5 Acquired absence of kidney ==

== ENCOUNTER → 2017-02-23 | Outpatient (CLI) | payer OTHER ==
[~2017-02-23] MED LIST: IOPAMIDOL (ISOVUE 370) 100 ML BTL IV ONE
== END ==
LOC: FIMAGING 09:54
PROVIDERS: ATTEND Nurse Practitioner Family
DX: R07.9 Chest pain, unspecified (principal); R06.02 Shortness of breath; I51.7 Cardiomegaly; I10 Essential (primary) hypertension
CPT/HCPCS: Q9967

== ENCOUNTER 2017-10-20 22:19 | Emergency (ER) | payer MEDICAID ==
[2017-10-20] MEDS ORDERED: NS 1,000 ML IV ONE (23:01)
[2017-10-20 23:08] LABS: PLATELET COUNT 141 10^3/uL (150-400)
--- NOTE | 2017-10-20 23:17 | EDPHY ---
H & P Stated Complaint: high blood sugars and a1c. polyuria, polydipsia Time Seen by Provider: 10/20/17 23:01 HPI/ROS: Chief Complaint: High blood sugar HPI: 57-year-old male with a history of type 2 diabetes who is controlled typically on Levemir 10 units daily. He is allergic to metformin is not on any other oral hyperglycemic agents. Patient recently had his Levemir dose increase by 2 units daily as now to 14. He was in his staff appraiser's office several days ago and noted his blood sugars at that time and a 500s. Is today he was and 580s. He has had increased thirst and urination. He tried because staff appraiser tonight but has not recall back. He is HIV positive with an undetectable viral load. Was recently treated for oral thrush in completed his nystatin course yesterday. Also recently his blood pressure has been decreasing a taking off the amlodipine. He does have a history of diastolic dysfunction and has been on Lasix in the past. He has noted a 14 lb increase in the last 2 weeks. He is scheduled to see his process safety manager tomorrow. No fevers or chills. No nausea or vomiting. No chest pain , but has been having some mild shortness of breath with exertion. ROS: 10 point Review of Systems is negative except as noted in the HPI. Social History: No smoking, no alcohol, no recreational drug use Family History: non-contributory Physical Exam: Gen: Awake, Alert, No Distress HEENT: Nose: no rhinorrhea Eyes: PERRLA, EOMI Mouth: Moist mucosa Neck: Supple, no JVD Chest: nontender, lungs clear to auscultation Heart: S1, S2 normal, no murmur Abd: Soft, non-tender, no guarding Back: no CVA tenderness, no midline tenderness Ext: 1+ edema, non-tender Skin: no rash Neuro: CN II-XII intact, Sensation grossly intact, Strength 5/5 in bilateral upper and lower extremities - Personal History Current Tetanus/Diphtheria Vaccine: Yes Current Tetanus Diphtheria and Acellular Pertussis (TDAP): Yes - Medical/Surgical History Hx Asthma: Yes Hx Chronic Respiratory Disease: No Hx Diabetes: Yes Hx Cardiac Disease: No Hx Renal Disease: Yes Hx Cirrhosis: No Hx Alcoholism: No Hx HIV/AIDS: Yes Hx Splenectomy or Spleen Trauma: No Other PMH: HIV 2004, Nephrectomy 1998, Enlarged Aorta, Hypertension, DM type 2, Asthma, Rectal Cancer - Social History Smoking Status: Never smoked Constitutional: Initial Vital Signs Temperature (C) 36.8 C 10/20/17 22:34 Heart Rate 79 10/20/17 22:34 Respiratory Rate 16 10/20/17 22:34 Blood Pressure 180/110 H 10/20/17 22:34 O2 Sat (%) 92 10/20/17 22:34 O2 Delivery Mode Room Air Allergies/Adverse Reactions: clindamycin Allergy (Verified 01/06/17 12:17) Rash dulaglutide [From Trulicity] Allergy (Verified 10/20/17 22:34) metformin Allergy (Verified 01/06/17 12:17) Szhkkyp-Xdq-Eaf Reductase Inhibitor Allergy (Verified 01/06/17 18:42) statin Allergy (Uncoded 01/06/17 18:42) Home Medications: Medication Instructions Recorded Albuterol [Proventil Inhaler HFA 1 - 2 puffs IH Q4H PRN 01/06/17 (*)] Aspirin [Aspirin 81mg (*)] 81 mg PO DAILY 01/06/17 Cholecalciferol Vit D3 [Vitamin D3 5,000 units PO DAILY 01/06/17 (*)] Dolutegravir Sodium [Tivicay] 50 mg PO DAILY 01/06/17 Emtricitabine/Tenofov Alafenam 1 each PO DAILY 01/06/17 [Descovy 200-25 mg Tablet] Fluticasone Nasal [Flonase Nasal 1 sprays NASAL DAILY PRN 01/06/17 [place]] Losartan Potassium [Cozaar] 100 mg PO HS 01/06/17 Carvedilol [Coreg (*)] 25 mg PO BIDMEAL #60 tab 01/08/17 Furosemide [Lasix 40 MG (*)] 40 mg PO DAILY #30 tab 01/08/17 Medical Decision Making ED Course/Re-evaluation: 57-year-old type 2 diabetic with hyperglycemia. Blood sugar is 600 here. He has been had increasing doses of Lantus recently a blood sugar remains high. He does not clinically look fluid overloaded however he does report a 14 lb weight gain in the last couple of weeks. He is not acidotic. His BMP is normal. His received 2 L of normal saline here. I have also given him 10 units of Humalog subcutaneously. We have discussed at length the need for further management of his diabetes. He will start his Lantus 10 units twice a day. He will follow up with staff appraiser in the next 1-2 days. - Data Points Laboratory Results: Laboratory Results 10/20/17 22:40 10/20/17 22:40 10/21/17 10/20/17 10/20/17 00:25 22:49 22:40 WBC RBC Hgb POC Hgb 15.0 gm/dL gm/dL (13.7-17.5) Hct POC Hct 44 % % (40-51) MCV MCH MCHC RDW Plt Count MPV Neut % (Auto) Lymph % (Auto) [place] % (Auto) Eos % (Auto) Baso % (Auto) Nucleat RBC Rel Count Absolute Neuts (auto) Absolute Lymphs (auto) Absolute Monos (auto) Absolute Eos (auto) Absolute Basos (auto) Absolute Nucleated RBC Immature Gran % Immature Gran # POC Sodium 129 mEq/L L mEq/L (135-145) Sodium 131 mEq/L L mEq/L (135-145) POC Potassium 4.9 mEq/L mEq/L (3.3-5.0) Potassium 4.9 mEq/L mEq/L (3.5-5.2) POC Chloride 93 mEq/L L mEq/L (97-110) Chloride 93 mEq/L L mEq/L (97-110) Carbon Dioxide 22 mEq/l mEq/l (22-31) Anion Gap 16 mEq/L mEq/L (8-16) POC BUN 32 mg/dL H mg/dL (7-23) BUN 29 mg/dL H mg/dL (7-23) Creatinine 1.4 mg/dL H mg/dL (0.7-1.3) POC Creatinine 1.6 mg/dL H mg/dL (0.7-1.3) Estimated GFR 52 Glucose 611 mg/dL H* mg/dL (70-100) POC Glucose 602 mg/dL H* mg/dL (70-100) Calcium 8.8 mg/dL mg/dL (8.5-10.4) NT-Pro-B Natriuret Pep 49 pg/mL pg/mL (0-125) Urine Color YELLOW Urine Appearance CLEAR Urine pH 5.0 (5.0-7.5) Ur Specific [place] 1.026 (1.002-1.030) Urine Protein NEGATIVE (NEGATIVE) Urine Ketones NEGATIVE (NEGATIVE) Urine Blood NEGATIVE (NEGATIVE) Urine Nitrate NEGATIVE (NEGATIVE) Urine Bilirubin NEGATIVE (NEGATIVE) Urine Urobilinogen NEGATIVE EU EU (0.2-1.0) Ur Leukocyte Esterase NEGATIVE (NEGATIVE) Urine RBC 1-3 /hpf /hpf (0-3) Urine WBC 1-3 /hpf /hpf (0-3) Ur Epithelial Cells TRACE /lpf /lpf (NONE-1+) Urine Mucus TRACE /lpf /lpf (NONE-1+) Urine Glucose 3+ H (NEGATIVE) 10/20/17 22:40 WBC 6.59 10^3/uL 10^3/uL (3.80-9.50) RBC 4.89 10^6/uL 10^6/uL (4.40-6.38) Hgb 13.9 g/dL g/dL (13.7-17.5) POC Hgb Hct 41.4 % % (40.0-51.0) POC Hct MCV 84.7 fL fL (81.5-99.8) MCH 28.4 pg pg (27.9-34.1) MCHC 33.6 g/dL g/dL (32.4-36.7) RDW 12.8 % % (11.5-15.2) Plt Count 141 10^3/uL L 10^3/uL (150-400) MPV 11.5 fL fL (8.7-11.7) Neut % (Auto) 55.9 % % (39.3-74.2) Lymph % (Auto) 30.8 % % (15.0-45.0) [place] % (Auto) 9.3 % % (4.5-13.0) Eos % (Auto) 2.6 % % (0.6-7.6) Baso % (Auto) 0.8 % % (0.3-1.7) Nucleat RBC Rel Count 0.0 % % (0.0-0.2) Absolute Neuts (auto) 3.69 10^3/uL 10^3/uL (1.70-6.50) Absolute Lymphs (auto) 2.03 10^3/uL 10^3/uL (1.00-3.00) Absolute Monos (auto) 0.61 10^3/uL 10^3/uL (0.30-0.80) Absolute Eos (auto) 0.17 10^3/uL 10^3/uL (0.03-0.40) Absolute Basos (auto) 0.05 10^3/uL 10^3/uL (0.02-0.10) Absolute Nucleated RBC 0.00 10^3/uL 10^3/uL (0-0.01) Immature Gran % 0.6 % % (0.0-1.1) Immature Gran # 0.04 10^3/uL 10^3/uL (0.00-0.10) POC Sodium Sodium POC Potassium Potassium POC Chloride Chloride Carbon Dioxide Anion Gap POC BUN BUN Creatinine POC Creatinine Estimated GFR Glucose POC Glucose Calcium NT-Pro-B Natriuret Pep Urine Color Urine Appearance Urine pH Ur Specific [place] Urine Protein Urine Ketones Urine Blood Urine Nitrate Urine Bilirubin Urine Urobilinogen Ur Leukocyte Esterase Urine RBC Urine WBC Ur Epithelial Cells Urine Mucus Urine Glucose Medications Given: Discontinued Medications Sodium Chloride (Ns) 1,000 mls @ 0 mls/hr IV ONCE ONE PRN Reason: Wide Open Stop: 10/20/17 23:02 Last Admin: 10/20/17 23:03 Dose: 1,000 mls Sodium Chloride (Ns) 1,000 mls @ 0 mls/hr IV ONCE ONE; Wide Open PRN Reason: Protocol Stop: 10/21/17 00:39 Last Admin: 10/21/17 00:43 Dose: 1,000 mls Insulin Human Lispro (Humalog Lispro) 10 unit SC EDNOW ONE Stop: 10/21/17 00:08 Last Admin: 10/21/17 00:24 Dose: 10 units Point of Care Test Results: 10/20/17 22:49 POC Sodium 129 L POC Potassium 4.9 POC Chloride 93 L POC BUN 32 H POC Creatinine 1.6 H POC Glucose 602 H* Departure - Departure Disposition: Home, Routine, Self-Care Clinical Impression: Hyperglycemia, Dehydration Condition: Good Instructions: Diabetic Hyperglycemia (ED) Additional Instructions: Start taking your Lantus, 10 units twice a day. Follow up with your staff appraiser in 1-2 days. Return to the emergency department for nausea vomiting, fevers or chills, abdominal pain, or any other concerns. Referrals: Tatiana James MD [Primary Care Provider] - As per Instructions
[2017-10-21] MEDS ORDERED: INSULIN LISPRO 100 UNIT/ML SC ONE (00:07)
[2017-10-21] MEDS ORDERED: NS 1,000 ML IV ONE (00:38)
[2017-10-21 02:34] VITALS: BP 157/99
== END 2017-10-21 02:37 | disposition home or self-care (01) ==
DX: E11.65 Type 2 diabetes mellitus with hyperglycemia (principal); I10 Essential (primary) hypertension; J45.909 Unspecified asthma, uncomplicated; E86.9 Volume depletion, unspecified; Z79.82 Long term (current) use of aspirin; Z85.048 Personal history of other malignant neoplasm of rectum, rectosigmoid junction, and anus
CPT/HCPCS: 82947-QW; J1815

== ENCOUNTER → 2017-11-26 | Outpatient (CLI) | payer MEDICAID, OTHER | LOC: FLAB 12:56 | PROVIDERS: ATTEND Orthopaedic Surgery Orthopaedic Surgery of the Spine | DX: Z01.811 Encounter for preprocedural respiratory examination (principal); M48.02 Spinal stenosis, cervical region; M54.12 Radiculopathy, cervical region; M50.01 Cervical disc disorder with myelopathy, high cervical region ==

== ENCOUNTER → 2018-07-20 | Outpatient (CLI) | payer MEDICAID ==
[~2018-07-20] MED LIST changes: +IOHEXOL 350mgI/ML (OMNIPAQUE) 150 ML BTL IV ONE; -IOPAMIDOL (ISOVUE 370) 100 ML BTL IV ONE
== END ==
LOC: FIMAGING 12:14
PROVIDERS: ATTEND Nurse Practitioner Family
DX: R07.9 Chest pain, unspecified (principal); I25.10 Atherosclerotic heart disease of native coronary artery without angina pectoris; J98.11 Atelectasis
CPT/HCPCS: 82565-PO; Q9967

== ENCOUNTER 2018-10-17 05:31 | Day surgery (SDC) | payer OTHER ==
--- NOTE | 2018-10-14 10:10 | PDHPUP ---
History & Physical Update H&P update statement: This history and physical update is based on an assessment of the patient which was completed after admission or registration (within 24 hours), but prior to the surgery/procedure. H&P update: H&P reviewed & patient examined, no change in patient's condition since H&P completed
--- NOTE | 2018-10-14 10:10 | PDANEPAE ---
ECT Pre Anesthetic Evaluation Allergies/Adverse Reactions: clindamycin Allergy (Verified 01/06/17 12:17) Rash dulaglutide [From Trulicity] Allergy (Verified 10/20/17 22:34) metformin Allergy (Verified 01/06/17 12:17) Yadmybg-Iab-Wbp Reductase Inhibitor Allergy (Verified 01/06/17 18:42) statin Allergy (Uncoded 01/06/17 18:42) Patient ID confirmed: Yes H&P reviewed: Yes Pre-anesthetic history reviewed: Yes Heart: regular rate and rhythym Lungs: no respiratory distress Mallampati Score: Class 2 ASA Status: II Home Medications: Medication Instructions Recorded Aspirin [Aspirin 81mg (*)] 81 mg PO DAILY 01/06/17 Cholecalciferol Vit D3 [Vitamin D3 5,000 units PO DAILY 01/06/17 (*)] Fluticasone Nasal [Flonase Nasal 1 - 2 sprays NASAL DAILY PRN 01/06/17 [place]] Aspirin/Acetaminophen/Caffeine 2 tab PO PRN 09/19/18 [Excedrin Migraine Geltab] Co Q-10 09/19/18 Codeine-Guaifenesin 10 ml PO Q4 09/19/18 Descovy 200-25 mg Tablet 1 tab PO DAILY 09/19/18 Dextroamphetamine/Amphetamine 30 mg PO BID 09/19/18 [Adderall 30 mg Tablet] Fiber Oal Powder PRN 09/19/18 Insulin Detemir [Levemir Flextouch] SC 09/19/18 Irbesartan [Avapro] 300 mg PO DAILY 09/19/18 Multivitamin 09/19/18 Mycophenolate Mofetil [Cellcept] 1,500 mg PO BID 09/19/18 Proair Hfa 90 mcg IH PRN 09/19/18 Propranolol HCl 20 mg PO BID 09/19/18 Raltegravir [Isentress] 400 mg PO BID 09/19/18 SUMAtriptan [Imitrex 50 MG (*)] 50 mg PO PRN 09/19/18 Torsemide 20 mg PO DAILY 09/19/18 amLODIPine BESYLATE [Norvasc 5 mg 1 tab PO DAILY 09/19/18 (*)] humALOG LISPRO 100 units/ml (*) SC 09/19/18 lamoTRIgine [Lamotrigine] 200 mg PO DAILY 09/19/18 Prevacid 30 mg PO ONCE 09/30/18 Tylenol 1,000 mg PO PRN 10/14/18 Medication review: completed Patient interviewed: Yes Patient examined: Yes Anesthetic plan discussed with patient: Yes Anesthetic risks discussed with patient: Yes ECT Pre-Anesthetic History - Medications In the Past 6 Months the Patient Has Taken: Antibiotics, Aspirin, Blood Pressure Medication - Tobacco/Alcohol/Drug Use Smoking Status: Never smoked - Prior Surgeries/Hospitalizations Prior Surgeries: 12/07/17 anterior disectomy/fusion, 08/26 Mohs procedure on nose , nephrectomy on right [id number],cataracts, radial kertotomy Prior Medical Hospitalizations: chest pain, - Pulmonary History ECT Hx Asthma: No Patient is Having Difficulty With: Shortness Of Breath, Awakens From Sleep Hx Abnormal Chest X-Ray: Yes Hx Oxygen in Use at Home: No Pulmonary History Comment: R/O pulmonary embolisim, URI on H&P dated 09/19/18 - Cardiovascular History Hx Hypertension: Yes Currently Uses Hypertension Medication: Yes Hx Arrhythmias: No Hx Palpitations: No Hx Chest Pain: Yes Hx Coronary Artery / Peripheral Vascular Disease: Yes Hx Blood Clot: No Cardiovascular History Comment: left ventricular hypertrophy, coronary artery disease, chronic diastolic (congestive heart failure), dilation of the aorta, - Endocrine History Hx Diabetes: Yes Current Daily Insulin Injections: Yes - Renal/Urologic History Hx Renal Disorders: Yes Renal/Urologic History Comment: nephrectomy right side, calcification, - Liver History Hx Hepatic Disorders: Yes Hepatic History Comment: elevated liver enzymes 2014 - Cancer History Hx Cancer: Yes 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
[2018-10-17] MEDS ORDERED: ceFAZolin 2 GM/DEXTROSE 100 ML IV ONE (05:48)
[2018-10-17] MEDS ORDERED: BUPIVACAINE/EPI 0.25% 30 ML SDV ONE (06:09)
[2018-10-17] MEDS ORDERED: MIDAZOLAM 2 MG/2 ML VIAL IVP ONE (06:40)
[2018-10-17] MEDS ORDERED: ALBUTEROL 3 ML DEYVIAL IH ONE (06:41)
--- NOTE | 2018-10-17 06:42 | PDANEPAE ---
ANE History of Present Illness ECT here for vascular access port ANE Past Medical History - Cardiovascular History Hx Hypertension: Yes Hx Arrhythmias: No Hx Chest Pain: Yes Hx Coronary Artery / Peripheral Vascular Disease: Yes Hx CHF / Valvular Disease: Yes Hx Palpitations: No Cardiovascular History Comment: DHF - Pulmonary History Hx COPD: No Hx Asthma/Reactive Airway Disease: Yes Hx Recent Upper Respiratory Infection: No Hx Oxygen in Use at Home: No Hx Sleep Apnea: Yes Sleep Apnea Screening Result - Last Documented: Positive Pulmonary History Comment: asthma, cold cough 2.5 months ago - Neurologic History Hx Cerebrovascular Accident: No Hx Seizures: No Hx Dementia: No - Endocrine History Hx Diabetes: Yes Endocrine History Comment: type 2 - Renal History Hx Renal Disorders: Yes Renal History Comment: stage 3 kidney disease, low oxalic acid diet, no fluid restriction - Liver History Hx Hepatic Disorders: No - Neurological & Psychiatric Hx Hx Neurological and Psychiatric Disorders: Yes Neurological / Psychiatric History Comment: add, ECT for depression - Cancer History Hx Cancer: Yes Cancer History Comment: skin cancer, - Congenital Disorder History Hx Congenital Disorders: No - GI History Hx Gastrointestinal Disorders: Yes - Chronic Pain History Chronic Pain: No - Surgical History Prior Surgeries: 12/07/17 anterior disectomy/fusion, 08/26 Mohs procedure on nose , nephrectomy on right [id number],cataracts, radial kertotomy, shoulder rotator cuff and bicep tendon reattachment 07/2018 ANE Review of Systems Review of Systems: - Exercise capacity METS (RN): 4 METS ANE Patient History - Allergies Allergies/Adverse Reactions: clindamycin Allergy (Verified 10/17/18 05:55) Rash, c- diff dulaglutide [From Trulicity] Allergy (Verified 10/17/18 05:55) depression metformin Allergy (Verified 10/17/18 05:55) explosive diarrhea [id number] Reductase Inhibitor Allergy (Verified 10/17/18 05:56) Other-Enter Comments statin Allergy (Uncoded 10/17/18 05:55) Other-Enter Comments - Home Medications Home Medications: Aspirin [Aspirin 81mg (*)] 81 mg PO DAILY 01/06/17 [Last Taken 2 Days Ago ~10/15] Cholecalciferol Vit D3 [Vitamin D3 (*)] 5,000 units PO DAILY 01/06/17 [Last Taken 2 Days Ago ~10/15/18] Fluticasone Nasal [Flonase Nasal [place]] 1 - 2 sprays NASAL DAILY PRN 01/06/17 [ Last Taken 10/14/18] Aspirin/Acetaminophen/Caffeine [Excedrin Migraine Geltab] 2 tab PO PRN 09/19/18 [Last Taken 2 Days Ago ~10/15/18] Co Q-10 09/19/18 [Last Taken 10/14/18] Codeine-Guaifenesin 10 ml PO Q4 09/19/18 [Last Taken Unknown] Descovy 200-25 mg Tablet 1 tab PO DAILY 09/19/18 [Last Taken 10/17/18 05:00] Dextroamphetamine/Amphetamine [Adderall 30 mg Tablet] 30 mg PO BID 09/19/18 [ Last Taken 10/10/18] Fiber Oal Powder PRN 09/19/18 [Last Taken 2 Days Ago ~10/15/18] Insulin Detemir [Levemir Flextouch] SC 09/19/18 [Last Taken 10/15/18 20:00] Irbesartan [Avapro] 300 mg PO DAILY 09/19/18 [Last Taken 10/16/18 20:00] Multivitamin 09/19/18 [Last Taken 2 Days Ago ~10/15/18] Mycophenolate Mofetil [Cellcept] 1,500 mg PO BID 09/19/18 [Last Taken 10/14/18] Proair Hfa 90 mcg IH PRN 09/19/18 [Last Taken 10/14/18] Propranolol HCl 20 mg PO BID 09/19/18 [Last Taken 10/17/18 05:00] Raltegravir [Isentress] 400 mg PO BID 09/19/18 [Last Taken 10/17/18 05:00] SUMAtriptan [Imitrex 50 MG (*)] 50 mg PO PRN 09/19/18 [Last Taken 10/14/18] Torsemide 20 mg PO DAILY 09/19/18 [Last Taken 10/17/18 05:00] amLODIPine BESYLATE [Norvasc 5 mg (*)] 1 tab PO DAILY 09/19/18 [Last Taken 10/17 05:00] lamoTRIgine [Lamotrigine] 200 mg PO DAILY 09/19/18 [Last Taken 10/17/18 05:00] Prevacid 30 mg PO ONCE 09/30/18 [Last Taken 10/17/18 05:00] Tylenol 1,000 mg PO PRN 10/14/18 [Last Taken 2 Days Ago ~10/15/18] - NPO status NPO Status: no food or drink >8 hours NPO Since - Liquids (Date): 10/17/18 NPO Since - Liquids (Time): 05:00 NPO Since - Solids (Date): 10/16/18 NPO Since - Solids (Time): 21:00 - Anes Hx Anes Hx: no prior problems - Smoking Hx Smoking Status: Never smoked - Alcohol Use Alcohol Use: Occasionally - Family Anes Hx Family Anes Hx: none Family Hx Anesthesia Complications: none ANE Labs/Vital Signs - Vital Signs Blood Pressure: 131/88 Heart Rate: 72 Respiratory Rate: 20 O2 Sat (%): 94 Height: 198.12 cm Weight: 127.006 kg ANE Physical Exam - Airway Neck exam: FROM Mallampati Score: Class 3 Mouth exam: poor dentition - Pulmonary Pulmonary: no respiratory distress - Cardiovascular Cardiovascular: regular rate and rhythym - ASA Status ASA Status: III ANE Anesthesia Plan Anesthesia Plan: GA w LMA
[2018-10-17] MEDS ORDERED: ALBUTEROL 3 ML DEYVIAL ONE (06:43)
[2018-10-17] MEDS ORDERED: fentaNYL 100 MCG/2 ML INJ ONE (06:46)
[2018-10-17] MEDS ORDERED: PROPOFOL 200 MG/20 ML VIAL ONE (06:46)
[2018-10-17] MEDS ORDERED: LIDOCAINE 2% 100 MG/5 ML SYR ONE (06:46)
[2018-10-17] MEDS ORDERED: LR 1,000 ML IV ONE (06:47)
[2018-10-17] MEDS ORDERED: PROMETHAZINE HCL 25 MG/ML INJ IVP PRN (07:45)
[2018-10-17] MEDS ORDERED: oxyCODONE IR 5 MG TAB PO PRN (07:45)
[2018-10-17] MEDS ORDERED: ONDANSETRON 4 MG/2 ML VIAL IVP PRN (07:45)
[2018-10-17] MEDS ORDERED: ACETAMINOPHEN 500 MG TAB PO PRN (07:45)
[2018-10-17] MEDS ORDERED: NALOXONE HCL 0.4 MG/ML INJ IVP PRN (07:45)
--- NOTE | 2018-10-17 08:14 | POSTOPPROG ---
Post Op Note Date of Operation: 10/17/18 Surgeon: George Trejo Anesthesiologist: Sherrill Anesthesia: GET(General Endotracheal) Pre-op Diagnosis: depression with psychotic features Post-op Diagnosis: same Procedure: L US guided IJ port placement c fluoro Findings: port flushed and withdrew appropriately Inf/Abcess present in the surg proc area at time of surgery?: No EBL: Minimal
--- NOTE | 2018-10-17 08:17 | POSTANESTH ---
Post Anesthetic Evaluation Cardiovascular Status: Normal, Stable, Similar to Pre-Op Cond Respiratory Status: Normal, Stable, Similar to Pre-op Cond., Requires Airway Assist Level of Consciousness/Mental Status: Can Participate in Eval, Mildly Sleepy, Arousable Pain Control: Adequate, Prn Tx Ordered Nausea/Vomiting Control: Adequate, Prn Tx Ordered Complications Possibly Related to Anesthesia: None Noted
[2018-10-17 09:24] VITALS: BP 125/92
--- NOTE | 2018-10-17 10:02 | GOP ---
[f rep st] OPERATIVE REPORT DATE OF OPERATION: 10/17/2018 SURGEON: George Trejo MD HANSARD REPORTER: None. ANESTHESIA: General endotracheal. ANESTHESIOLOGIST: Jose Mccartney MD PREOPERATIVE DIAGNOSIS: Depression with psychotic features. POSTOPERATIVE DIAGNOSIS: Depression with psychotic features. PROCEDURE PERFORMED: Ultrasound-guided left internal jugular vascular access port with intraoperative fluoroscopy. FINDINGS: Successful cannulation and placement of PowerPort into the left internal jugular vein. The tip is at the atrial caval junction. The port both flushed and withdrew appropriately. SPECIMENS: None. ESTIMATED BLOOD LOSS: 5 cc. DESCRIPTION OF PROCEDURE: The patient was greeted in the preoperative suite. Once again, risks, benefits, and alternatives were discussed. Consent was signed. He was then brought back to the operative suite, placed on the OR table in supine position. After all anesthesia machines including SCDs were on and functioning, [employer] time-out was performed. After successful induction of general anesthesia, the patient's left neck was prepped and draped in typical sterile fashion. I identified the left internal jugular vein using ultrasound guidance. I successfully anesthetized the overlying muscle and successfully cannulated the vein with a single stick. I then threaded my guidewire using intraoperative fluoroscopy, placed a guidewire into the superior vena cava. I then placed my peel-away sheath. I placed the pocket approximately 2 fingerbreadths below the ipsilateral clavicle. I made the pocket large enough to accommodate the port. There was a very large bridging vein in the cutaneous area which I successfully tied off as it was going to be in the access site for the port itself. I then tunneled the catheter itself from the port site to the stick site and placed it within the peel-away sheath. It was sized appropriately at the atrial caval junction. It was attached to the port, it both flushed and withdrew appropriately. It was placed in the pocket. The pocket was then closed. The port was heparinized. The pocket was closed with interrupted 3-0 Vicryl, followed by 4-0 Monocryl, followed by Dermabond. The patient was then extubated in the operative suite and taken to PACU in satisfactory condition. DRAINS: None. COUNTS: All counts were reported as correct x2. /[id number]/MODL MTDD
== END 2018-10-17 09:35 | disposition home or self-care (01) ==
LOC: FSGY 05:31
PROVIDERS: ATTEND Surgery
DX: F31.81 Bipolar II disorder (principal); I25.10 Atherosclerotic heart disease of native coronary artery without angina pectoris; N18.3 Chronic kidney disease, stage 3 (moderate); E11.22 Type 2 diabetes mellitus with diabetic chronic kidney disease
CPT/HCPCS: C1788; J0690; J1642; J2001; J2250; J2704; J3010; J7613